=== PATIENT | male | born 1950 | race Caucasian/White ===

== ENCOUNTER → 2020-09-19 | Outpatient (CLI) | payer MEDICARE, BC ==
[~2020-09-19] MED LIST: ALLOPURINOL 30300 M3 PO; FISH OIL 1,001000 M1 PO; GINKGO BILOBA120 M1 PO; HYDROCODON-ACE1 EACH PO; LISINOPRIL10 MG; NEPHROCAPS SOFT1 CAP; ODORLESS GARLI500 MG PO; VITCB500GO PO
== END ==
LOC: M.MRI 15:30
PROVIDERS: ATTEND Family Medicine
DX: I67.82 Cerebral ischemia (principal); R51.9 Headache, unspecified

== ENCOUNTER → 2020-10-11 | Outpatient (CLI) | payer MEDICARE, BC | LOC: M.MRI 07:06 | PROVIDERS: ATTEND Family Medicine | DX: M47.816 Spondylosis without myelopathy or radiculopathy, lumbar region (principal); M48.07 Spinal stenosis, lumbosacral region; M48.061 Spinal stenosis, lumbar region without neurogenic claudication ==

== ENCOUNTER → 2021-01-08 | Outpatient (CLI) | payer OTHER | LOC: M.CT 08:53 | PROVIDERS: ATTEND Family Medicine | DX: Z13.6 Encounter for screening for cardiovascular disorders (principal); J84.89 Other specified interstitial pulmonary diseases; I25.10 Atherosclerotic heart disease of native coronary artery without angina pectoris ==

== ENCOUNTER → 2021-01-29 | Outpatient (CLI) | payer MEDICARE, BC ==
--- NOTE | 2021-01-30 22:20 | PF ---
[address] [address] PULMONARY FUNCTION REPORT Name: ALMA MIRANDA Room: [facility]#: [id number] Admission: 01/29/21 Attend Phys: Isaiah Moseley MD Discharge: Date of : 52 Report #: [id number] THIS REPORT FOR: cc: Floyd Umanzor Russell J. DO Pervez, Adeel MD ~ DATE OF VISIT: 01/29/2021 The FEV1/FVC ratio is normal at 70% with an FVC normal at 82%. The FEV1 is mildly decreased to 78%. The FEF 25-75 is decreased to 56%. After the administration of a bronchodilator, there is a 39% increase in FEF 25-75. There is no significant change in the other values mentioned here. The patient's post-bronchodilator FEV1 is 3.05 liters. The flow volume loop is concave upwards. The total lung capacity is normal at 97% with a residual volume increased to 124%. The DLCO as adjusted for hemoglobin is decreased to 60%. IMPRESSION: 1. Mild obstruction with evidence of some reversibility as evidenced by an increase in FEF 25-75, 39% after the administration of a bronchodilator. 2. On lung volumes, there is an isolated increase in residual volume to 124%. This is consistent with hyperinflation secondary to underlying obstruction. 3. The DLCO as adjusted for hemoglobin is decreased to 60%. <ELECTRONICALLY SIGNED> By: Isaiah Moseley MD 01/30/21 2220 [id number] Moseley MD /nt
== END ==
LOC: M.MRI 08:30
PROVIDERS: ATTEND Internal Medicine Critical Care Medicine
DX: M51.24 Other intervertebral disc displacement, thoracic region (principal); J98.8 Other specified respiratory disorders; M25.78 Osteophyte, vertebrae

== ENCOUNTER → 2021-02-25 | Outpatient (CLI) | payer MEDICARE, BC ==
[~2021-02-25] MED LIST changes: +CARVEDILOL12.5 MG PO; +MYCOPHENOLIC A180 MG PO; +NORCO7.5; +PROAIR HFA8.5 GM; +PROGRAF1 M1 PO; +PROTONIX40 M3 PO; +SUPER THERAVIT1 EACH
== END ==
LOC: M.PC 08:16
PROVIDERS: ATTEND Physical Medicine & Rehabilitation
DX: M47.816 Spondylosis without myelopathy or radiculopathy, lumbar region (principal); M51.26 Other intervertebral disc displacement, lumbar region; M48.061 Spinal stenosis, lumbar region without neurogenic claudication; Z94.0 Kidney transplant status; Z88.0 Allergy status to penicillin

== ENCOUNTER → 2021-05-01 | Outpatient (CLI) | payer MEDICARE, BC | LOC: M.RAD 11:18 | PROVIDERS: ATTEND Internal Medicine Critical Care Medicine | DX: J84.9 Interstitial pulmonary disease, unspecified (principal); M25.78 Osteophyte, vertebrae; Z94.0 Kidney transplant status; Z86.16 Personal history of COVID-19 ==